=== PATIENT | female | born 1975 | race Caucasian/White ===

== ENCOUNTER 2022-09-14 21:03 | Emergency (ER) | payer OTHER, MEDICAID, SELFPAY ==
[2022-09-14 21:11] VITALS: BP 142/76; PULSE 73; RESP 17; TEMP 36.6; O2SAT 98; BMI 21.2
--- NOTE | 2022-09-14 22:46 | ED.NAVMDI ---
HPI - Nausea/Vomiting/Diarrhea General Chief complaint: Nausea/Vomiting/Diarrhea Stated complaint: Vomiting, flu like sxs Time Seen by Provider: 09/14/22 21:31 Source: patient and EMS Mode of arrival: EMS History of Present Illness HPI Narrative: 46-year-old female who is here for evaluation of 24 hours of vomiting and muscle soreness of her abdomen because of the vomiting. No fevers. States she just does not feel very well. Has not been able to take her home medications. She did try some Zofran prior to arrival without any improvement. Related Data Home Medications Medication Instructions Recorded Confirmed KETOROLAC TROMETHAMINE (#TORADOL) ##0 02/17/11 tramadol 50 mg tablet ##0 02/17/11 Allergies Allergy/AdvReac Type Severity Reaction Status Date / Time No Known Drug Allergies Allergy Verified 09/14/22 22:48 Review of Systems Constitutional Constitutional: Reports system reviewed and no additional complaints, except as documented Cardiovascular Cardiovascular: Reports system reviewed and no additional complaints, except as documented Respiratory Respiratory: Reports system reviewed and no additional complaints, except as documented Gastrointestinal Gastrointestinal: Reports system reviewed and no additional complaints, except as documented Genitourinary Genitourinary: Reports system reviewed and no additional complaints, except as documented Integumentary/Breasts Skin/Breast: Reports system reviewed and no additional complaints, except as documented Neurologic Neurologic: Reports system reviewed and no additional complaints, except as documented Patient History Social History Smoking Status: Never smoker Smoking Status: Never smoker alcohol intake frequency: other Substance Use Type: does not use and former substance user Exam Initial Vital Signs Initial Vital Signs: Vital Signs Temperature 97.8 F 09/14/22 21:11 Pulse Rate 73 09/14/22 21:11 Respiratory Rate 17 09/14/22 21:11 Blood Pressure 142/76 H 09/14/22 21:11 Pulse Oximetry 98 09/14/22 21:11 Oxygen Delivery Method 09/14/22 21:11 HENMT Head: normal to inspection and normocephalic Resp Effort & Inspection: normal respiratory effort Auscultation: clear to auscultation bilaterally Cardio Rate: regular rate Rhythm: regular rhythm GI Inspection: normal to inspection and non-distended Neuro General: patient alert and patient awake Course Orders Ordered: ED Orders 09/14/22 22:27 Covid-19 + FLU A/B + RSV - PCR Stat 09/14/22 22:30 Complete Blood Count AUTO DIFF Stat Comprehensive Metabolic Panel Stat Lipase Stat Test Serum,Qual Stat Discontinued Medications Sodium Chloride (Normal Saline 0.9%) 1,000 mls @ 1,000 mls/hr IV BOLUS ONE Stop: 09/14/22 22:31 Last Infusion: 09/14/22 23:47 Dose: 0 mls/hr Documented By: Admin: 09/14/22 22:50 Dose: 1,000 mls/hr Documented By: AT Ondansetron HCl (Ondansetron 4 Mg/2 Ml Inj) 4 mg IV NOW ONE Stop: 09/14/22 22:47 Last Admin: 09/14/22 22:49 Dose: 4 mg Documented By: AT Vital Signs Vital signs: Vital Signs - 8 hr 09/14/22 21:11 09/15/22 00:37 Temperature 97.8 F Pulse Rate 73 77 Respiratory Rate 17 16 Blood Pressure 142/76 H 141/72 H Pulse Oximetry 98 99 Oxygen Delivery Method Room Air Room Air MDM - Nausea/Vomiting/Diarrhea Lab Data Attestation: I reviewed the patient's lab results. Result diagrams: 09/14/22 22:30 09/14/22 22:30 Labs: Lab Results 09/14/22 09/14/22 09/14/22 Range/Units 22:27 22:30 22:30 WBC 12.1 H (4.5-11.0) X10^3/uL RBC 4.68 (4.0-5.2) X10^6/uL Hgb 15.2 (12.0-16.0) g/dL Hct 44.5 (36-46) % MCV 95.0 (80-100) fL MCH 32.5 (26-34) PG MCHC 34.2 (30-36) % RDW 13.0 (11.6-14.8) % Plt Count 340 (150-400) X10^3/uL Neut % (Auto) 87.9 H (50-75) % Lymph % (Auto) 7.1 L (25-40) % [place] % (Auto) 3.6 (3-14) % Eos % (Auto) 0.1 L (2-4) % Baso % (Auto) 1.3 (0-2) % Neut # (Auto) 14241 H (2576-2075) /uL Lymph # (Auto) 900 L (7518-5768) /uL [place] # (Auto) 400 (0-900) /uL Eos # (Auto) 0 (0-450) /uL Baso # (Auto) 200 H (0-100) /uL Sodium 139 (137-145) mmol/L Potassium 3.5 (3.4-5.1) mmol/L Chloride 99 (98-107) mmol/L Carbon Dioxide 30 (22-32) mmol/L BUN 16 (7-17) mg/dL Creatinine 0.58 (0.52-1.04) mg/dL Estimated GFR > 60 (>60) mL/min BUN/Creatinine Ratio 27.6 H (6-22) Glucose 120 H (70-100) mg/dL Calcium 9.3 (8.4-10.2) mg/dL Total Bilirubin 0.6 (0.2-1.3) mg/dL AST 27 (14-36) IU/L ALT 28 (<35) IU/L Alkaline Phosphatase 114 (38-126) U/L Total Protein 8.9 H (6.3-8.2) g/dL Albumin 4.9 (3.5-5.0) g/dL Globulin 4.0 (1.7-4.1) g/dL Albumin/Globulin Ratio 1.2 (1.0-2.8) Lipase 32 (23-300) U/L Serum , Qual (Negative) SARS-CoV-2 (PCR) Negative (Negative) Influenza A (RT-PCR) Flu a negative (NEGATIVE) Influenza B (RT-PCR) Flu b negative (NEGATIVE) RSV (PCR) Negative (Negative) 09/14/22 Range/Units 22:30 WBC (4.5-11.0) X10^3/uL RBC (4.0-5.2) X10^6/uL Hgb (12.0-16.0) g/dL Hct (36-46) % MCV (80-100) fL MCH (26-34) PG MCHC (30-36) % RDW (11.6-14.8) % Plt Count (150-400) X10^3/uL Neut % (Auto) (50-75) % Lymph % (Auto) (25-40) % [place] % (Auto) (3-14) % Eos % (Auto) (2-4) % Baso % (Auto) (0-2) % Neut # (Auto) (6679-0063) /uL Lymph # (Auto) (1025-0149) /uL [place] # (Auto) (0-900) /uL Eos # (Auto) (0-450) /uL Baso # (Auto) (0-100) /uL Sodium (137-145) mmol/L Potassium (3.4-5.1) mmol/L Chloride (98-107) mmol/L Carbon Dioxide (22-32) mmol/L BUN (7-17) mg/dL Creatinine (0.52-1.04) mg/dL Estimated GFR (>60) mL/min BUN/Creatinine Ratio (6-22) Glucose (70-100) mg/dL Calcium (8.4-10.2) mg/dL Total Bilirubin (0.2-1.3) mg/dL AST (14-36) IU/L ALT (<35) IU/L Alkaline Phosphatase (38-126) U/L Total Protein (6.3-8.2) g/dL Albumin (3.5-5.0) g/dL Globulin (1.7-4.1) g/dL Albumin/Globulin Ratio (1.0-2.8) Lipase (23-300) U/L Serum , Qual Negative (Negative) SARS-CoV-2 (PCR) (Negative) Influenza A (RT-PCR) (NEGATIVE) Influenza B (RT-PCR) (NEGATIVE) RSV (PCR) (Negative) MDM Narrative Medical decision making narrative: Reports improvement of symptoms after above stated treatments. No indication for radiologic studies. No indication for antibiotics. Will discharge patient home with return precautions. She expressed understanding and agreement. Discharge Plan Departure Patient Disposition: Home Clinical Impression: Vomiting Instructions: DI for Vomiting -- Adult Activity Restrictions/Additional Instructions: Continue to take all of your medications as directed. You can use the nausea medicine that you have at home as needed. Return to the emergency department for any new symptoms. Prescriptions: No Action tramadol 50 MG tablet Qty: 0 KETOROLAC TROMETHAMINE (#TORADOL) Qty: 0 Referrals: Karey Monet MD [Primary Care Provider] -
[2022-09-14] MEDS: ONDANSETRON 4 MG/2 ML INJ IV (22:49)
[2022-09-14] MEDS: SODIUM CHLORIDE 0.9% 1,000 ML 1000 ML IV (22:50)
[2022-09-14 22:52] LABS: Add Manual Diff / Slide Review NO; Basophils Absolute Auto 200 /uL (0-100); Basophils Percent Auto 1.3 % (0-2); Eosinophils Absolute Auto 0 /uL (0-450); Eosinophils Percent Auto 0.1 % (2-4); Hematocrit 44.5 % (36-46); Hemoglobin 15.2 g/dL (12.0-16.0); Lymphocytes Absolute Auto 900 /uL (1100-4500); Lymphocytes Percent Auto 7.1 % (25-40); Mean Corpuscular HGB Conc 34.2 % (30-36); Mean Corpuscular Hemoglobin 32.5 PG (26-34); Monocytes Absolute Auto 400 /uL (0-900); Monocytes Percent Auto 3.6 % (3-14); Neutrophils Absolute Auto 10600 /uL (1500-7000); Neutrophils Percent Auto 87.9 % (50-75); Platelet Count 340 X10^3/uL (150-400); Red Blood Cell Count 4.68 X10^6/uL (4.0-5.2); White Blood Cell Count 12.1 X10^3/uL (4.5-11.0)
[2022-09-14 22:58] LABS: Alanine Aminotransferase 28 IU/L (<35); Albumin 4.9 g/dL (3.5-5.0); Albumin Globulin Ratio 1.2 (1.0-2.8); Alkaline Phosphatase 114 U/L (38-126); Aspartate Aminotransferase 27 IU/L (14-36); BUN Creatinine Ratio 27.6 (6-22); Bilirubin Total 0.6 mg/dL (0.2-1.3); Blood Urea Nitrogen 16 mg/dL (7-17); Calcium 9.3 mg/dL (8.4-10.2); Carbon Dioxide 30 mmol/L (22-32); Chloride 99 mmol/L (98-107); Estimated Glomerular Filt Rate > 60 mL/min (>60); Glucose 120 mg/dL (70-100); HEMOLYSIS < 15 (0-50); Lipase 32 U/L (23-300); Potassium 3.5 mmol/L (3.4-5.1); Sodium 139 mmol/L (137-145); Total Protein 8.9 g/dL (6.3-8.2)
[2022-09-14 23:02] LABS: Pregnancy Test Serum,Qual Negative (Negative)
[2022-09-14 23:12] LABS: Influenza A - CEPHEID Flu A NEGATIVE (NEGATIVE); Influenza B - CEPHEID Flu B NEGATIVE (NEGATIVE); Respiratory Syncytial Virus Negative (Negative)
[2022-09-14 23:15] LABS: COVID-19 CEPHEID 4-PLEX PCR Negative (Negative)
[2022-09-15 00:37] VITALS: BP 141/72; PULSE 77; RESP 16; O2SAT 99
== END 2022-09-15 00:43 | disposition home or self-care (01) ==
PROVIDERS: Emergency Provider Emergency Medicine; Family Provider Internal Medicine Geriatric Medicine; PCP Internal Medicine Geriatric Medicine
DX: R11.10 Vomiting, unspecified (principal); Z20.822 Contact with and (suspected) exposure to COVID-19
CPT/HCPCS: 0241U; 80053; 83690; 84703; 85025; 96361; 96374; 99283; 99284; J2405

== ENCOUNTER 2022-09-28 20:00 | Emergency (ER) | payer OTHER, MEDICAID, SELFPAY ==
[2022-09-28] VITALS (15 sets, daily range): BP systolic 104–144; BP diastolic 55–84; PULSE 77–130; RESP 2–34; TEMP 37; O2SAT 93–100
--- NOTE | 2022-09-28 20:00 | ED.OVERDOSE ---
HPI - Overdose <Leila Underwood DO - Last Filed: 10/04/22 07:59> General Chief Complaint: Toxicology Problem Stated Complaint: OD Time Seen by Provider: 09/28/22 20:00 Source: patient Mode of arrival: EMS Limitations: no limitations History of Present Illness HPI Narrative: This is a 46-year-old female with reported history of chronic narcotic abuse who arrives via EMS for reported overdose. Patient had reportedly got out of rehab a month ago, her parents found her in the RV on their property that she is living in currently there was concern that she might not have a heartbeat so CPR was administered by parents after prompting by dispatch. When medics arrived they paid state patient was cyanotic with agonal respirations but had a pulse. Patient received Narcan intranasally had mild improvement had an IV placed and received 1 mg Narcan IV and promptly woke up completely. They state she is been yelling and flailing has not really been able to answer questions. Patient is denying any other medical issues. No known surgeries. No known drug allergies. Patient states that she took fentanyl earlier today. She states she is never had an ear can before had experienced these symptoms before. She does feel nauseated states she feels terrible. She answer some but not all questions. Patient initially did not know why she was in the emergency department but then states she was told she overdose. She does not express any suicidal intent or goal to harm herself. Related Data Home Medications Medication Instructions Recorded Confirmed KETOROLAC TROMETHAMINE (#TORADOL) ##0 02/17/11 tramadol 50 mg tablet ##0 02/17/11 Allergies Allergy/AdvReac Type Severity Reaction Status Date / Time No Known Drug Allergies Allergy Verified 09/28/22 20:07 Review of Systems <Leila Underwood DO - Last Filed: 10/04/22 07:59> Review of Systems ROS Unobtainable: All systems reviewed & are unremarkable except as noted in HPI and below Patient History <Leila Underwood DO - Last Filed: 10/04/22 07:59> Social History Smoking Status: Never smoker Smoking Status: Never smoker alcohol intake frequency: other Substance Use Type: does not use and former substance user Exam <Leila C Mank, DO - Last Filed: 10/04/22 07:59> Narrative Exam Narrative: GEN: well nourished, female, alert and oriented x 3, patient appears to be in moderate distress. Patient appears anxious and quite uncomfortable. Clear speech. HEENT: Atraumatic, pupils are equal round reactive to light, extraocular movements are intact, nares are clear, there is no conjunctival pallor. Throat is clear without any exudates, erythema, tonsillar enlargement or uvular deviation HEART: Regular rate and rhythm without murmur, clicks, rubs. Pulses are equal in upper and lower extremities LUNGS:Lungs clear to auscultation, no wheezes, rales, crackles, chest moves symmetrically ABD:bowel sounds normal, soft, non-tender, no guarding, rebound, rigidity, no masses noted, no hepatosplenomegaly :No CVA tenderness MSCL: Non-tender, no muscle atrophy, muscles strength 5/5 upper and lower extremities, full range of motion NEURO:CN 2-12 intact, sensation normal SKIN: Rash, erythema or other skin changes. PSYCH: No suicidal intent expressed. Initial Vital Signs Initial Vital Signs: Vital Signs Pulse Rate 124 H 09/28/22 19:59 Pulse Oximetry 100 09/28/22 19:59 <Orlando Sauceod, DO - Last Filed: 09/30/22 04:35> Initial Vital Signs Initial Vital Signs: Vital Signs Pulse Rate 124 H 09/28/22 19:59 Pulse Oximetry 100 09/28/22 19:59 Course <Leila Underwood, DO - Last Filed: 10/04/22 07:59> Orders Ordered: Discontinued Medications Sodium Chloride (Normal Saline 0.9%) 1,000 mls @ 1,000 mls/hr IV BOLUS ONE Stop: 09/28/22 20:59 Last Infusion: 09/28/22 21:10 Dose: 0 mls/hr Documented By: Admin: 09/28/22 20:09 Dose: 1,000 mls/hr Documented By: STEFFANY Naloxone HCl (Naloxone 0.4 Mg/Ml Vial) 0.1 mg IV Q2MIN PRN PRN Reason: Opiate Reversal Naloxone HCl (Naloxone 4 Mg Nasal [place]) 4 mg MISC SEEINSTR ONE Stop: 09/29/22 08:22 Last Admin: 09/29/22 08:39 Dose: 4 mg Documented By: VIJAY Ondansetron HCl (Ondansetron 4 Mg/2 Ml Inj) 4 mg IV NOW ONE Stop: 09/28/22 20:01 Last Admin: 09/28/22 20:09 Dose: 4 mg Documented By: STEFFANY Vital Signs Vital signs: Vital Signs - 8 hr 09/29/22 06:15 09/29/22 06:30 09/29/22 06:30 Pulse Rate 62 70 Respiratory Rate 18 19 Blood Pressure 106/53 L Pulse Oximetry 97 97 Oxygen Delivery Method 09/29/22 06:45 09/29/22 07:00 09/29/22 07:00 Pulse Rate 65 61 Respiratory Rate 39 H 11 L Blood Pressure 103/56 L Pulse Oximetry 98 97 Oxygen Delivery Method 09/29/22 07:15 09/29/22 07:30 09/29/22 07:30 Pulse Rate 61 58 L Respiratory Rate 19 19 Blood Pressure 110/55 L Pulse Oximetry 96 97 Oxygen Delivery Method 09/29/22 07:45 09/29/22 08:00 09/29/22 08:00 Pulse Rate 58 L 58 L Respiratory Rate 15 16 Blood Pressure 110/58 L Pulse Oximetry 96 98 Oxygen Delivery Method 09/29/22 08:15 09/29/22 08:30 09/29/22 08:30 Pulse Rate 70 76 Respiratory Rate 20 16 Blood Pressure 106/55 L Pulse Oximetry 98 97 Oxygen Delivery Method Room Air <Orlando Saucedo DO - Last Filed: 09/30/22 04:35> Orders Ordered: Discontinued Medications Sodium Chloride (Normal Saline 0.9%) 1,000 mls @ 1,000 mls/hr IV BOLUS ONE Stop: 09/28/22 20:59 Last Infusion: 09/28/22 21:10 Dose: 0 mls/hr Documented By: Admin: 09/28/22 20:09 Dose: 1,000 mls/hr Documented By: STEFFANY Naloxone HCl (Naloxone 0.4 Mg/Ml Vial) 0.1 mg IV Q2MIN PRN PRN Reason: Opiate Reversal Naloxone HCl (Naloxone 4 Mg Nasal [place]) 4 mg MISC SEEINSTR ONE Stop: 09/29/22 08:22 Last Admin: 09/29/22 08:39 Dose: 4 mg Documented By: VIJAY Ondansetron HCl (Ondansetron 4 Mg/2 Ml Inj) 4 mg IV NOW ONE Stop: 09/28/22 20:01 Last Admin: 09/28/22 20:09 Dose: 4 mg Documented By: GC Vital Signs Vital signs: Vital Signs - 8 hr 09/29/22 06:15 09/29/22 06:30 09/29/22 06:30 Pulse Rate 62 70 Respiratory Rate 18 19 Blood Pressure 106/53 L Pulse Oximetry 97 97 Oxygen Delivery Method 09/29/22 06:45 09/29/22 07:00 09/29/22 07:00 Pulse Rate 65 61 Respiratory Rate 39 H 11 L Blood Pressure 103/56 L Pulse Oximetry 98 97 Oxygen Delivery Method 09/29/22 07:15 09/29/22 07:30 09/29/22 07:30 Pulse Rate 61 58 L Respiratory Rate 19 19 Blood Pressure 110/55 L Pulse Oximetry 96 97 Oxygen Delivery Method 09/29/22 07:45 09/29/22 08:00 09/29/22 08:00 Pulse Rate 58 L 58 L Respiratory Rate 15 16 Blood Pressure 110/58 L Pulse Oximetry 96 98 Oxygen Delivery Method 09/29/22 08:15 09/29/22 08:30 09/29/22 08:30 Pulse Rate 70 76 Respiratory Rate 20 16 Blood Pressure 106/55 L Pulse Oximetry 98 97 Oxygen Delivery Method Room Air MDM - Overdose <Leila Underwood, - Last Filed: 10/04/22 07:59> Lab Data Result diagrams: 09/28/22 20:01 09/28/22 20:01 Labs: Lab Results 09/28/22 09/28/22 09/28/22 Range/Units 20:01 20:01 20:01 WBC 5.4 (4.5-11.0) X10^3/uL RBC 4.10 (4.0-5.2) X10^6/uL Hgb 13.4 (12.0-16.0) g/dL Hct 39.6 (36-46) % MCV 96.6 (80-100) fL MCH 32.6 (26-34) PG MCHC 33.8 (30-36) % RDW 12.6 (11.6-14.8) % Plt Count 286 (150-400) X10^3/uL Neut % (Auto) 46.1 L (50-75) % Lymph % (Auto) 40.5 H (25-40) % Ida % (Auto) 11.2 (3-14) % Eos % (Auto) 1.5 L (2-4) % Baso % (Auto) 0.7 (0-2) % Neut # (Auto) 2500 (3299-4074) /uL Lymph # (Auto) 2200 (4330-1301) /uL Ida # (Auto) 600 (0-900) /uL Eos # (Auto) 100 (0-450) /uL Baso # (Auto) 0 (0-100) /uL Sodium 140 (137-145) mmol/L Potassium 4.4 (3.4-5.1) mmol/L Chloride 100 (98-107) mmol/L Carbon Dioxide 28 (22-32) mmol/L BUN 19 H (7-17) mg/dL Creatinine 0.67 (0.52-1.04) mg/dL Estimated GFR > 60 (>60) mL/min BUN/Creatinine Ratio 28.4 H (6-22) Glucose 249 H (70-100) mg/dL Lactate 3.6 H (0.7-2.1) mmol/L Calcium 9.1 (8.4-10.2) mg/dL Total Bilirubin 0.9 (0.2-1.3) mg/dL Conjugated Bilirubin 0.0 (0.0-0.3) md/dL Unconjugated Bilirubin 0.3 (0.0-1.1) mg/dL AST 52 H (14-36) IU/L ALT 34 (<35) IU/L Alkaline Phosphatase 78 (38-126) U/L Total Creatine Kinase 321 H (30-135) U/L CK-MB (CK-2) 6.02 H (<2.37) ng/mL CK-MB (CK-2) Rel Index 1.9 (1.5-5.0) % Troponin I 0.021 (0.01-0.034) ng/mL Total Protein 8.1 (6.3-8.2) g/dL Albumin 4.5 (3.5-5.0) g/dL Globulin 3.6 (1.7-4.1) g/dL Albumin/Globulin Ratio 1.3 (1.0-2.8) Serum , Qual (Negative) Salicylates < 1.0 (<20) mg/dL Acetaminophen < 10 (10-30) ug/mL Ethyl Alcohol < 10 ( - 10) mg/dL 09/28/22 09/28/22 Range/Units 20:01 23:02 WBC (4.5-11.0) X10^3/uL RBC (4.0-5.2) X10^6/uL Hgb (12.0-16.0) g/dL Hct (36-46) % MCV (80-100) fL MCH (26-34) PG MCHC (30-36) % RDW (11.6-14.8) % Plt Count (150-400) X10^3/uL Neut % (Auto) (50-75) % Lymph % (Auto) (25-40) % Ida % (Auto) (3-14) % Eos % (Auto) (2-4) % Baso % (Auto) (0-2) % Neut # (Auto) (5413-4314) /uL Lymph # (Auto) (9871-5209) /uL Ida # (Auto) (0-900) /uL Eos # (Auto) (0-450) /uL Baso # (Auto) (0-100) /uL Sodium (137-145) mmol/L Potassium (3.4-5.1) mmol/L Chloride (98-107) mmol/L Carbon Dioxide (22-32) mmol/L BUN (7-17) mg/dL Creatinine (0.52-1.04) mg/dL Estimated GFR (>60) mL/min BUN/Creatinine Ratio (6-22) Glucose (70-100) mg/dL Lactate 0.6 L (0.7-2.1) mmol/L Calcium (8.4-10.2) mg/dL Total Bilirubin (0.2-1.3) mg/dL Conjugated Bilirubin (0.0-0.3) md/dL Unconjugated Bilirubin (0.0-1.1) mg/dL AST (14-36) IU/L ALT (<35) IU/L Alkaline Phosphatase (38-126) U/L Total Creatine Kinase (30-135) U/L CK-MB (CK-2) (<2.37) ng/mL CK-MB (CK-2) Rel Index (1.5-5.0) % Troponin I (0.01-0.034) ng/mL Total Protein (6.3-8.2) g/dL Albumin (3.5-5.0) g/dL Globulin (1.7-4.1) g/dL Albumin/Globulin Ratio (1.0-2.8) Serum , Qual Negative (Negative) Salicylates (<20) mg/dL Acetaminophen (10-30) ug/mL Ethyl Alcohol ( - 10) mg/dL Imaging Data Chest x-ray: Radiologist's Impression: Macy Mtz??46??F??1975 ? Allergy/Adv: No Known Drug Allergies (More??) Close Chest X-Ray (Signed) Herbert Judge - 09/28/22 Launch?[place] [address] XRay Report Signed Patient: Macy Mtz MR#: [id number] : 1975 Acct:[id number] Age/Sex: 46 / F Date of Service: 09/28/22 Loc: ED Accession Number: [id number] ?? Procedure: XR chest 1V Ordering Provider: Leila Underwood D.O. PROCEDURE:? XR CHEST 1V ? INDICATIONS:? overdose ? TECHNIQUE:? One view of the chest was acquired.? ? COMPARISON:? [facility], , CHEST 2 VIEW, 03/20/2007, 19:06. ? FINDINGS:? ? Surgical changes and devices:? None.? ? Lungs and pleura:? Lungs are clear.? No pleural effusions or pneumothorax.? ? Mediastinum:? Mediastinal contours appear normal.? Heart size is normal.? ? Bones and chest wall:? No suspicious bony lesions.? Overlying soft tissues appear unremarkable.? ? IMPRESSION:? The patient is rotated somewhat rightward, and when this is taken into account the mediastinal contours are normal.? No acute disease. ? ? Dictated by: Herbert Judge M.D. on 09/28/2022 at 20:53 ? ? Approved by: Herbert Judge M.D. on 09/28/2022 at 20:53?? MDM Narrative Medical decision making narrative: This is a 46-year-old female with narcotic overdose who responded to Narcan in the field, patient had quite a bit and was in clear withdrawals upon arrival. Patient's appears stable otherwise, as the Narcan has worn off patient is improved she has not become hypoxic or required additional doses so far. She is been on end-tidal CO2 monitoring. Chest x-ray does not show any changes such as aspiration or pulmonary edema, labs overall show BUN 19 patient did receive a L fluids, no electrolyte abnormalities glucose was 249 lactate was 3 6 suspect this is secondary to her overdose troponin is 0.021, serum is negative. Patient lactate was repeated and has significantly improved. Patient did not become hypoxic but did have some elevations in her end-tidal CO2 so was continued to be monitored she did not require additional Narcan but did require some verbal stimuli at times. Discussed with patient she is interested in meeting with social for resources versus detox. She states that she had been doing well since she had left rehab found a stash in her old belongings and relapsed today. She does note that she is currently taking Suboxone daily. Patient signed out to Dr. Saucedo, patient is medically cleared at this time. [place] safe for discharge, she discussed possibly meeting with social work if available during the day. [0700] (Lewis) Patient received in sign out from [Kj]. I have reviewed the clinical course and performed an independent history and physical exam. No significant issues, currently awaiting consultation from social work 0815 -patient demonstrates capacity, speaks clearly and without slurring, walks a straight line. She no longer wants to wait and is requesting discharge. She does have a ride arranged. Narcan prepack dispensed Naloxone at Discharge Meets criteria for naloxone at discharge?: Yes <Orlando Sacuedo, DO - Last Filed: 09/30/22 04:35> Lab Data Labs: Lab Results 09/28/22 09/28/22 09/28/22 Range/Units 20:01 20:01 20:01 WBC 5.4 (4.5-11.0) X10^3/uL RBC 4.10 (4.0-5.2) X10^6/uL Hgb 13.4 (12.0-16.0) g/dL Hct 39.6 (36-46) % MCV 96.6 (80-100) fL MCH 32.6 (26-34) PG MCHC 33.8 (30-36) % RDW 12.6 (11.6-14.8) % Plt Count 286 (150-400) X10^3/uL Neut % (Auto) 46.1 L (50-75) % Lymph % (Auto) 40.5 H (25-40) % Ida % (Auto) 11.2 (3-14) % Eos % (Auto) 1.5 L (2-4) % Baso % (Auto) 0.7 (0-2) % Neut # (Auto) 2500 (6685-6766) /uL Lymph # (Auto) 2200 (1478-4073) /uL Ida # (Auto) 600 (0-900) /uL Eos # (Auto) 100 (0-450) /uL Baso # (Auto) 0 (0-100) /uL Sodium 140 (137-145) mmol/L Potassium 4.4 (3.4-5.1) mmol/L Chloride 100 (98-107) mmol/L Carbon Dioxide 28 (22-32) mmol/L BUN 19 H (7-17) mg/dL Creatinine 0.67 (0.52-1.04) mg/dL Estimated GFR > 60 (>60) mL/min BUN/Creatinine Ratio 28.4 H (6-22) Glucose 249 H (70-100) mg/dL Lactate 3.6 H (0.7-2.1) mmol/L Calcium 9.1 (8.4-10.2) mg/dL Total Bilirubin 0.9 (0.2-1.3) mg/dL Conjugated Bilirubin 0.0 (0.0-0.3) md/dL Unconjugated Bilirubin 0.3 (0.0-1.1) mg/dL AST 52 H (14-36) IU/L ALT 34 (<35) IU/L Alkaline Phosphatase 78 (38-126) U/L Total Creatine Kinase 321 H (30-135) U/L CK-MB (CK-2) 6.02 H (<2.37) ng/mL CK-MB (CK-2) Rel Index 1.9 (1.5-5.0) % Troponin I 0.021 (0.01-0.034) ng/mL Total Protein 8.1 (6.3-8.2) g/dL Albumin 4.5 (3.5-5.0) g/dL Globulin 3.6 (1.7-4.1) g/dL Albumin/Globulin Ratio 1.3 (1.0-2.8) Serum , Qual (Negative) Salicylates < 1.0 (<20) mg/dL Acetaminophen < 10 (10-30) ug/mL Ethyl Alcohol < 10 ( - 10) mg/dL 09/28/22 09/28/22 Range/Units 20:01 23:02 WBC (4.5-11.0) X10^3/uL RBC (4.0-5.2) X10^6/uL Hgb (12.0-16.0) g/dL Hct (36-46) % MCV (80-100) fL MCH (26-34) PG MCHC (30-36) % RDW (11.6-14.8) % Plt Count (150-400) X10^3/uL Neut % (Auto) (50-75) % Lymph % (Auto) (25-40) % Ida % (Auto) (3-14) % Eos % (Auto) (2-4) % Baso % (Auto) (0-2) % Neut # (Auto) (3184-9878) /uL Lymph # (Auto) (0314-3419) /uL Ida # (Auto) (0-900) /uL Eos # (Auto) (0-450) /uL Baso # (Auto) (0-100) /uL Sodium (137-145) mmol/L Potassium (3.4-5.1) mmol/L Chloride (98-107) mmol/L Carbon Dioxide (22-32) mmol/L BUN (7-17) mg/dL Creatinine (0.52-1.04) mg/dL Estimated GFR (>60) mL/min BUN/Creatinine Ratio (6-22) Glucose (70-100) mg/dL Lactate 0.6 L (0.7-2.1) mmol/L Calcium (8.4-10.2) mg/dL Total Bilirubin (0.2-1.3) mg/dL Conjugated Bilirubin (0.0-0.3) md/dL Unconjugated Bilirubin (0.0-1.1) mg/dL AST (14-36) IU/L ALT (<35) IU/L Alkaline Phosphatase (38-126) U/L Total Creatine Kinase (30-135) U/L CK-MB (CK-2) (<2.37) ng/mL CK-MB (CK-2) Rel Index (1.5-5.0) % Troponin I (0.01-0.034) ng/mL Total Protein (6.3-8.2) g/dL Albumin (3.5-5.0) g/dL Globulin (1.7-4.1) g/dL Albumin/Globulin Ratio (1.0-2.8) Serum , Qual Negative (Negative) Salicylates (<20) mg/dL Acetaminophen (10-30) ug/mL Ethyl Alcohol ( - 10) mg/dL MDM Narrative Medical decision making narrative: This is a 46-year-old female with narcotic overdose who responded to Narcan in the field, patient had quite a bit and was in clear withdrawals upon arrival. Patient's appears stable otherwise, as the Narcan has worn off patient is improved she has not become hypoxic or required additional doses so far. She is been on end-tidal CO2 monitoring. Chest x-ray does not show any changes such as aspiration or pulmonary edema, labs overall show BUN 19 patient did receive a L fluids, no electrolyte abnormalities glucose was 249 lactate was 3 6 suspect this is secondary to her overdose troponin is 0.021, serum is negative. Patient lactate was repeated and has significantly improved. Patient did not become hypoxic but did have some elevations in her end-tidal CO2 so was continued to be monitored she did not require additional Narcan but did require some verbal stimuli at times. Discussed with patient she is interested in meeting with social for resources versus detox. She states that she had been doing well since she had left rehab found a stash in her old belongings and relapsed today. She does note that she is currently taking Suboxone daily. [0700] (Lewis) Patient received in sign out from [Kj]. I have reviewed the clinical course and performed an independent history and physical exam. No significant issues, currently awaiting consultation from social work 0815 -patient demonstrates capacity, speaks clearly and without slurring, walks a straight line. She no longer wants to wait and is requesting discharge. She does have a ride arranged. Narcan prepack dispensed Naloxone at Discharge Reason patient is not provided naloxone?: Other reason (she was dispensed a narcan prepack) Discharge Plan Departure Patient Disposition: Home Clinical Impression: Opiate or related narcotic overdose Instructions: DI for Drug Overdose in Adults, Naloxone for Opiate Overdose - [facility] Activity Restrictions/Additional Instructions: *You have been diagnosed with [accidental narcotic overdose] *What to do: *Please continue to take your regular medications as directed. *Please follow up with your primary care provider in 2-3 days, call for an appointment. Let them know you were seen in the Emergency Department and that we ask that you be seen in follow up. We will electronically transmit a record of today's note if your PCP is in our system *If you do not have a primary care provider please contact the [facility] Resource line at [phone]. They will ask some questions about your medical history and help get you set up with a doctor in the community. *Return to Emergency Department if you should have any new, worsening or concerning symptoms, such as [fever greater than 101 F, shaking chills, worsening pain, persistent vomiting or other bothersome symptoms] Prescriptions: No Action tramadol 50 MG tablet Qty: 0 KETOROLAC TROMETHAMINE (#TORADOL) Qty: 0 Referrals: [facility] [Outside] [facility] [Outside] Located Within [facility] [Outside] Karey Monet MD [Primary Care Provider] - Stand Alone Forms: Patient Portal/API
--- NOTE | 2022-09-28 20:01 | DI.RAD.S_ITS ---
PROCEDURE: XR CHEST 1V INDICATIONS: overdose TECHNIQUE: One view of the chest was acquired. COMPARISON: [facility], , CHEST 2 VIEW, 03/20/2007, 19:06. FINDINGS: Surgical changes and devices: None. Lungs and pleura: Lungs are clear. No pleural effusions or pneumothorax. Mediastinum: Mediastinal contours appear normal. Heart size is normal. Bones and chest wall: No suspicious bony lesions. Overlying soft tissues appear unremarkable. IMPRESSION: The patient is rotated somewhat rightward, and when this is taken into account the mediastinal contours are normal. No acute disease. Dictated by: Herbert Judge M.D. on 09/28/2022 at 20:53 Approved by: Herbert Judge M.D. on 09/28/2022 at 20:53
[2022-09-28] MEDS: SODIUM CHLORIDE 0.9% 1,000 ML 1000 ML IV (20:09)
[2022-09-28] MEDS: ONDANSETRON 4 MG/2 ML INJ IV (20:09)
[2022-09-28 20:36] LABS: Add Manual Diff / Slide Review NO; Basophils Absolute Auto 0 /uL (0-100); Basophils Percent Auto 0.7 % (0-2); Eosinophils Absolute Auto 100 /uL (0-450); Eosinophils Percent Auto 1.5 % (2-4); Hematocrit 39.6 % (36-46); Hemoglobin 13.4 g/dL (12.0-16.0); Lymphocytes Absolute Auto 2200 /uL (1100-4500); Lymphocytes Percent Auto 40.5 % (25-40); Mean Corpuscular HGB Conc 33.8 % (30-36); Mean Corpuscular Hemoglobin 32.6 PG (26-34); Mean Corpuscular Volume 96.6 fL (80-100); Monocytes Absolute Auto 600 /uL (0-900); Monocytes Percent Auto 11.2 % (3-14); Neutrophils Absolute Auto 2500 /uL (1500-7000); Neutrophils Percent Auto 46.1 % (50-75); Platelet Count 286 X10^3/uL (150-400); Red Cell Distribution Width 12.6 % (11.6-14.8); White Blood Cell Count 5.4 X10^3/uL (4.5-11.0)
[2022-09-28 20:54] LABS: Acetaminophen < 10 ug/mL (10-30); Alanine Aminotransferase 34 IU/L (<35); Alkaline Phosphatase 78 U/L (38-126); Aspartate Aminotransferase 52 IU/L (14-36); BUN Creatinine Ratio 28.4 (6-22); Bilirubin Total 0.9 mg/dL (0.2-1.3); Bilirubin Unconjugated 0.3 mg/dL (0.0-1.1); Blood Urea Nitrogen 19 mg/dL (7-17); Calcium 9.1 mg/dL (8.4-10.2); Carbon Dioxide 28 mmol/L (22-32); Chloride 100 mmol/L (98-107); Creatine Kinase 321 U/L (30-135); Estimated Glomerular Filt Rate > 60 mL/min (>60); Ethanol (ETOH) < 10 mg/dL; Glucose 249 mg/dL (70-100); Lactate (Lactic Acid) 3.6 mmol/L (0.7-2.1); Potassium 4.4 mmol/L (3.4-5.1); Salicylate < 1.0 mg/dL (<20); Sodium 140 mmol/L (137-145); Total Protein 8.1 g/dL (6.3-8.2)
[2022-09-28 20:59] LABS: HEMOLYSIS 114 (0-50)
[2022-09-28 21:05] LABS: Troponin I 0.021 ng/mL (0.01-0.034)
[2022-09-28 21:08] LABS: CKMB % Relative Index 1.9 % (1.5-5.0); Creatine Kinase MB 6.02 ng/mL (<2.37)
[2022-09-28 21:24] LABS: Pregnancy Test Serum,Qual Negative (Negative)
[2022-09-28 21:37] LABS: Albumin 4.5 g/dL (3.5-5.0); Albumin Globulin Ratio 1.3 (1.0-2.8); Globulin 3.6 g/dL (1.7-4.1)
[2022-09-28 22:31] LABS: Reflexed Lactate in 2 Hours Y
[2022-09-28 23:22] LABS: Lactate 2HR (Lactic Acid Rflx) 0.6 mmol/L (0.7-2.1)
[2022-09-29] VITALS (35 sets, daily range): BP systolic 88–112; BP diastolic 50–58; PULSE 55–83; RESP 8–39; O2SAT 94–98
[2022-09-29] MEDS: NALOXONE 4 MG NASAL SPRAY MISC (08:39)
--- NOTE | 2022-09-29 08:43 | PC.NURSE ---
RN informed pt that a urine same was needed for the social security specialist to help find inpatient detox treatment. Pt states I don't want inpatient, I am set up with outpatient and I have suboxone at home. RN notified Dr. Saucedo.
== END 2022-09-29 08:54 | disposition home or self-care (01) ==
PROVIDERS: Emergency Medicine; Emergency Provider Emergency Medicine; Family Provider Internal Medicine Geriatric Medicine; PCP Internal Medicine Geriatric Medicine
DX: T40.601A Poisoning by unspecified narcotics, accidental (unintentional), initial encounter (principal)
CPT/HCPCS: 36415; 71045; 80053; 80076; 80320; 80329; 82550; 82553; 83605; 84484; 84703; 85025; 96374; 99284; A9270; G0480; J2405

== ENCOUNTER → 2024-06-08 07:34 | Outpatient (CLI) | payer OTHER, MEDICAID, SELFPAY | PROVIDERS: Family Provider Internal Medicine Geriatric Medicine; PCP Internal Medicine Geriatric Medicine; Visit Provider Physician Assistant Medical | DX: L02.91 Cutaneous abscess, unspecified (principal) | CPT/HCPCS: 87070; 87075; 87077; 87147; 87205 ==